=== PATIENT | female | born 1950 | race Caucasian/White ===

== ENCOUNTER → 2018-11-23 | Day surgery (SDC) | payer OTHER ==
[2018-11-21 15:53] LABS: BASOPHILS % 0.6 % (0.0-1.0); EOSINOPHILS # (AUTO) 0.2 (0.0-0.4); EOSINOPHILS % 2.7 % (0.0-6.0); HEMATOCRIT 38.7 % (34.2-44.1); HEMOGLOBIN 12.9 g/dL (12.0-16.0); LYMPHOCYTES # (AUTO) 2.5 (1.0-3.2); LYMPHOCYTES % 37.7 % (18.0-39.1); MEAN CORPUSCULAR HEMOGLOBIN 31.1 pg (28-32); MEAN CORPUSCULAR HGB CONC 33.3 g/dL (31-35); MEAN CORPUSCULAR VOLUME 93.3 fL (81-99); MONOCYTES # (AUTO) 0.6 (0.2-0.8); MONOCYTES % 8.5 % (4.4-11.3); NEUTROPHILS # (AUTO) 3.4 (2.1-6.9); NEUTROPHILS % 50.4 % (38.7-80.0); PLATELET COUNT 322 x10e3/uL (140-360); RED BLOOD COUNT 4.15 x10e6/uL (3.6-5.1); RED CELL DISTRIBUTION WIDTH 12.3 % (11.7-14.4)
--- NOTE | 2018-11-21 16:44 | Diagnostic Imaging Report ---
EXAMINATION: PA and lateral views of the chest. COMPARISON: None CLINICAL HISTORY: Preoperative study for D&C DISCUSSION: The lungs are hyperinflated with increased AP diameter of chest. Biapical pleural-parenchymal scar. No airspace consolidation, pleural effusion, or pneumothorax. Tortuous thoracic aorta with atherosclerotic calcification. Normal heart size. No pulmonary edema. Bilateral upward hilar retraction. Surgical clips in the right chest wall with questionable adjacent rib deformities and resultant increased attenuation over the right lower hemithorax. No acute osseous abnormality. IMPRESSION: No acute cardiopulmonary abnormality. 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 Biapical scar. Signed by: Dr. Piyush Funk M.D. on 11/21/2018 4:40 PM
[~2018-11-23] MED LIST: AMLODIPINE BESYL5 MG PO; ANASTROZOLE1 MG PO; CEFAZOLIN SOD 1 GM VIAL ONE; DEXAMETHASONE SOD PHOS INJ 4 MG/ML VIAL ONE; FENTANYL CITRATE/PF 100MCG/2 ML INJ ONE; LIDOCAINE HCL 2% LOCAL INJ 5 ML SDV VIAL INJ ONE; LOSARTAN POTAS100 MG PO; MIDAZOLAM HCL 2 MG/2 ML VIAL ONE; ONDANSETRON HCL INJ 2MG/ML 2ML 2 MG/ML VIAL ONE; PHENYLEPHRINE HCL 1% 10 MG/ML VIAL ONE; PROPOFOL IV EMULSION 10 MG/ML 20 ML VIAL ONE; SEVOFLURANE INHAL SOLN 250 ML PEN BTL ONE; VIT D PO
--- OUTSIDE RECORDS SUMMARY | 2018-11-23 05:38 | XMS REPORT ---
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 Allergies, Adverse Reactions, Alerts This patient has no known allergies or adverse reactions. Medications This patient has no known medications. Results Test Description Test Time Test Comments Text Results Atomic Results Result Comments CHEST 2 VIEWS 2018-11-21 16:37:00 [place] [address] Patient Name: MEREDITH ROSADO MR #: [id number] : 1950 Age/Sex: 68/F Req #: [id number] Adm Physician: Ordered by: SHANNON MENDOZA MD Report #: [id number] Location: OR Room/Bed: Procedure: [id number] DX/CHEST 2 VIEWS Exam Date: 11/21/18 Exam Time: 1631 REPORT STATUS: Signed EXAMINATION: PA and lateral views of the chest. COMP ARISON: None CLINICAL HISTORY: Preoperative study for D C DISCUSSION: The lungs are hyperinflated with increased AP diameter of chest. Biapical pleural-parenchymal scar. No airspace consolidation, pleural effusion, or pneumothorax. Tortuous thoracic aorta with atherosclerotic calcification. Normal heart size. No pulmonary edema. Bilateral upward hilar retraction. Surgical clips in the right chest wall with questionable adjacent rib deformities and resultant increased attenuation over the right lower hemithorax. No acute osseous abnormality. IMPRESSION: No acute cardiopulmonary abnormality. 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 Biapical scar. Signed by: Dr. Flavio Velez M.D. on 11/21/2018 4:40 PM Dictated By: FLAVIO VELEZ MD [id number] Transcribed By: BARBARA on 11/21/18 1640 COPY TO: SHANNON MENDOZA MD
--- OUTSIDE RECORDS SUMMARY | 2018-11-23 05:38 | XMS REPORT | Clinical Summary ---
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 Active amLODIPine (NORVASC) 5 mg Take 5 mg by 1 tablet mouth daily. 9 Active anastrozole (ARIMIDEX) 1 Take 1 mg by 3 mg chemo tablet mouth daily. 8 Active Problems Problem Noted Date Malignant neoplasm of right female breast 10/27/2018 Essential hypertension 10/27/2018 Colicky RLQ abdominal pain 10/27/2018 Encounters Care Team Description Date Type Specialty Abida Grewal 11/07/2018 Telephone Family Medicine Jacque Malcolm MD Essential hypertension (Primary Dx); Dysuria; Colicky RLQ abdominal pain 10/27/2018 Office Visit Internal Medicine after 11/22/2017 Family History Relation Name Status Comments Father Mother Social History Date Tobacco Use Types Packs/Day Years Used Never Smoker Smokeless Tobacco: Never Used Alcohol Use Drinks/Week oz/Week Comments No Alcohol Habits Answer Date Recorded How often do you have a drink containing alcohol? Never 10/27/2018 How many drinks containing alcohol do you have on Not asked a typical day when you are drinking? How often do you have six or more drinks on one Not asked occasion? Sex Assigned at Date Recorded Not on file Industry Job Start Date Occupation Not on file Not on file Not on file Travel End Travel History Travel Start No recent travel history available. Last Filed Vital Signs Time Taken Vital Sign Reading 10/27/2018 1:16 PM DELIVERY PERSON Blood Pressure 144/83 10/27/2018 1:16 PM DELIVERY PERSON Pulse 91 10/27/2018 1:16 PM DELIVERY PERSON Temperature 36.8 C (98.2 F) 10/27/2018 1:16 PM DELIVERY PERSON Respiratory Rate 16 - Oxygen Saturation - - Inhaled Oxygen - Concentration 10/27/2018 1:16 PM DELIVERY PERSON Weight 54 kg (119 lb) 10/27/2018 1:16 PM DELIVERY PERSON Height 170.2 cm (5' 7") 10/27/2018 1:16 PM DELIVERY PERSON Body Mass Index 18.64 Plan of Treatment Health Maintenance Due Date Last Done Comments SHINGLES VACCINES (1 of 2001 2) PNEUMOCOCCAL 10/27/2019 Postponed from 2016 POLYSACCHARIDE VACCINE (Patient Refused) AGE 65 AND OVER PNEUMOCOCCAL-13 10/27/2019 Postponed from 2016 (Patient Refused) BREAST CANCER SCREENING 03/04/2020 03/04/2018 COLON CANCER SCREENING 02/01/2026 02/02/2016 INFLUENZA VACCINE Completed 07/04/2018 Results Not on fileafter 11/22/2017 Insurance Payer Benefit Subscriber ID Type Phone Address Plan / Group [employer] CIGNA OPEN xxxxxxxxxxx HMO ACCESS/NET WORK Advance Directives Patient has advance care planning documents on file. For more information, susan hector contact: Emil Gregg [address] [place] [address]
--- NOTE | 2018-11-23 07:11 | NUR ---
SPIRITUAL CARE - Pre-Surgery Assessment: Pt in bed. Pt's at bedside. Pt identified as [employer]. Pt reported supportive attention from family and friends. Intervention: I provided pastoral presence, hospitality, sympathetic listening, and prayer. I acquainted pt with availability of clinical reimbursement specialist while hospitalized. Outcome: Pt expressed appreciation for visit. No need for follow up indicated at this time. RADHA PATRICIA Air Conditioning Service Technician Spiritual Care Department O: [phone] Pager: [phone] ([phone] number calling from)
[2018-11-23 09:20] VITALS: BP 145/82
--- NOTE | 2018-11-30 13:33 | Operative Report ---
DATE OF PROCEDURE: 11/23/2018 SURGEON: Stefany Mello MD SUPPORT TECHNICIAN: None. PREOPERATIVE DIAGNOSIS: Thickened endometrium with fluid within the endometrial cavity. POSTOPERATIVE DIAGNOSIS: Thickened endometrium with fluid within the endometrial cavity. PROCEDURES PERFORMED: Hysteroscopy, dilation and curettage. ANESTHESIA: General. ESTIMATED BLOOD LOSS: Minimal. COMPLICATIONS: None. FINDINGS: Clear fluid within the endometrial canal and atrophic appearance of endometrium. SPECIMENS: Endometrial curettings as well as cultures of fluid. PROCEDURE NOTE: Prior to the procedure, the risks, benefits, indications, and alternatives were discussed and the patient agreed to proceed. Following anesthesia, the patient was placed in modified dorsal lithotomy position in [facility] stirrups, prepping and draping was performed in typical sterile fashion and a time-out was done. A weighted speculum was placed in the vagina and the cervix was grasped with a single-tooth tenaculum. Cervix was then sequentially dilated and the hysteroscope was inserted with the findings as previously mentioned. Cultures were taken of the fluid, which came from within the endometrial cavity during dilation. A sharp curettage was then performed until a gritty texture was noted and all endometrial tissue was sent to pathology. All instruments were removed from the patient. Tenaculum sites were noted to be hemostatic. The patient was awakened and brought to the recovery room in stable condition having tolerated the procedure well. All sponge, lap, needle, and instrument counts were correct x2. Stefany Mello MD MEF/MODL /[id number]
== END | disposition home or self-care (01) ==
LOC: OR 05:35 → EDBD 07:30
PROVIDERS: ATTEND Obstetrics & Gynecology Obstetrics
DX: R93.89 Abnormal findings on diagnostic imaging of other specified body structures (principal); N85.8 Other specified noninflammatory disorders of uterus; Z01.810 Encounter for preprocedural cardiovascular examination; Z01.812 Encounter for preprocedural laboratory examination; Z01.818 Encounter for other preprocedural examination; I10 Essential (primary) hypertension; I25.10 Atherosclerotic heart disease of native coronary artery without angina pectoris; I34.1 Nonrheumatic mitral (valve) prolapse; Z85.3 Personal history of malignant neoplasm of breast; Z90.11 Acquired absence of right breast and nipple
CPT/HCPCS: 36415; 58558; 71046; 85025; 87071; 87075; 87205; 88305; 88342; 93005; J0690; J1100; J2001; J2250; J2370; J2405; J2704